=== PATIENT | male | born 1950 | race Caucasian/White ===

== ENCOUNTER 2016-12-08 10:17 | Inpatient (IN) | payer MEDICARE, OTHER ==
[~2016-12-08] VITALS: Ht 175.3 cm; Wt 102.2 kg
[2016-12-08] MEDS ORDERED: SODIUM CHLORIDE 0.9% 1,000 ML ONE (11:54)
[2016-12-08] MEDS ORDERED: ACETAMINOPHEN 325 MG TAB PO PRN (13:35)
[2016-12-08] MEDS ORDERED: ONDANSETRON 4 MG VIAL IV PUSH PRN (13:35)
[2016-12-08] MEDS ORDERED: DEXTROSE 50% SYRINGE 50 ML IV PRN (13:35)
[2016-12-08] MEDS ORDERED: GLUCAGON 1 MG VIAL IM PRN (13:35)
[2016-12-08] MEDS ORDERED: SODIUM CHLORIDE 0.9% 250 ML IV ONE (13:45)
[2016-12-08] MEDS ORDERED: CEFTRIAXONE 1 GM VIAL ONE (13:45)
[2016-12-08] MEDS ORDERED: AZITHROMYCIN 500 MG VIAL IV ONE (13:45)
[2016-12-08] MEDS ORDERED: SODIUM CHLORIDE 0.9% 100 ML IV ONE (13:46)
[2016-12-08 15:19] VITALS: BP_SYST 122; RESP 18; TEMP 98.4
[2016-12-08 15:31] VITALS: Ht 175.3 cm; Wt 102.2 kg
[2016-12-08] MEDS: CETIRIZINE 10 MG TAB PO SCH (15:58)
[2016-12-08] MEDS: VENLAFAXINE XR 150 MG CAP PO SCH (15:58)
[2016-12-08] MEDS: SITAGLIPTIN 50 MG TAB PO SCH (15:59)
[2016-12-08] MEDS: OXYCODONE 5 MG TAB PO PRN (17:44)
[2016-12-08 19:13] VITALS: BP_SYST 136; RESP 18; TEMP 98.1
[2016-12-08] MEDS: METFORMIN 500 MG TAB PO SCH (21:28)
[2016-12-08 22:53] VITALS: BP_SYST 104; RESP 16; TEMP 98.8
[2016-12-09 03:41] VITALS: BP_SYST 112; RESP 16; TEMP 98.2
[2016-12-09] MEDS ORDERED: SALINE FLUSH 10 ML FLUSH PRN (06:25)
[2016-12-09] MEDS: OXYCODONE 5 MG TAB PO PRN ×3 (06:31→20:01)
[2016-12-09 07:08] VITALS: BP_SYST 158; RESP 20; TEMP 98.4
[2016-12-09] MEDS: VENLAFAXINE XR 150 MG CAP PO SCH (09:21)
[2016-12-09] MEDS: CETIRIZINE 10 MG TAB PO SCH (09:21)
[2016-12-09] MEDS: AZITHROMYCIN 250 MG TAB PO SCH (09:21)
[2016-12-09] MEDS: SITAGLIPTIN 50 MG TAB PO SCH (09:22)
[2016-12-09] MEDS: METFORMIN 500 MG TAB PO SCH ×2 (09:22→20:00)
[2016-12-09] MEDS: CEFTRIAXONE 1 GM in SODIUM CHLORIDE 0.9% 50 ML IV SCH (09:23)
[2016-12-09] MEDS: SALINE FLUSH 10 ML FLUSH SCH ×2 (09:40→20:00)
[2016-12-09 11:45] VITALS: BP_SYST 150; RESP 20; TEMP 97.6
[2016-12-09 15:14] VITALS: BP_SYST 146; RESP 18; TEMP 98
[2016-12-09 19:26] VITALS: BP_SYST 144; RESP 18; TEMP 97.9
[2016-12-10] MEDS ORDERED: SODIUM CHLORIDE 0.9% FLUSH BAG 500 ML IV PRN (06:00)
[2016-12-10] MEDS ORDERED: SODIUM CHLORIDE 0.9% FLUSH BAG 500 ML IV SCH (06:00)
[2016-12-10] MEDS: OXYCODONE 5 MG TAB PO PRN (06:04)
[2016-12-10 06:21] VITALS: BP_SYST 159; RESP 18; TEMP 97.7
[2016-12-10 07:25] VITALS: BP_SYST 154; RESP 18; TEMP 98.4
[2016-12-10] MEDS: AZITHROMYCIN 250 MG TAB PO SCH (08:06)
[2016-12-10] MEDS: SALINE FLUSH 10 ML FLUSH SCH (08:06)
[2016-12-10] MEDS: CETIRIZINE 10 MG TAB PO SCH (08:06)
[2016-12-10] MEDS: VENLAFAXINE XR 150 MG CAP PO SCH (08:06)
[2016-12-10] MEDS: CEFTRIAXONE 1 GM in SODIUM CHLORIDE 0.9% 50 ML IV SCH (08:06)
[2016-12-10] MEDS: SITAGLIPTIN 50 MG TAB PO SCH (08:06)
[2016-12-10] MEDS: METFORMIN 500 MG TAB PO SCH (08:07)
[2016-12-10 10:52] VITALS: BP_SYST 154; RESP 18; TEMP 98.4
== END 2016-12-10 11:10 | disposition home or self-care (01) | DRG 193 ==
LOC: ENRESERVDT → ENRESERVTM → ER 10:17 → EMR 13:35 → ENPENDDIS 13:35 → 4NT 15:09
PROVIDERS: ADMIT Internal Medicine Nephrology; ATTEND Internal Medicine Nephrology
CPT/HCPCS: 36415; 70450; 71020; 80053; 81003; 82947; 83605; 85025; 87040; 93005; 96361; 96365; 96375